=== PATIENT | female | born 1950 | race Caucasian/White ===

== ENCOUNTER → 2019-09-08 | Outpatient (CLI) | payer MEDICARE ==
[~2019-09-08] MED LIST: ARICEPT10 MG PO; NAMENDA XR 28MG PO; OMNICEF 300MG300 MG PO; PRINIVIL5 MG PO
[2019-09-08 14:37] LABS: COLLECTION METHOD CLEAN CATCH
[2019-09-08 14:44] LABS: BASO # 0.1 (0.0-0.2); BASO % 1.1 % (0.0-2.0); EOS # 0.1 (0.0-0.7); EOS % 0.9 % (0-4.0); GRAN # 4.8 (1.4-6.5); GRAN % 60.9 % (42.2-75.2); HEMATOCRIT 46.8 % (37.0-47.0); LYMPH # 2.3 (1.2-3.4); LYMPH % 29.3 % (20.0-51.0); MEAN CELL VOLUME 88 fl (80.0-100.0); MEAN CORPUSCULAR HEMOGLOBIN 28 pg (27.0-31.0); MEAN CORPUSCULAR HGB CONC 32 g/dl (33.0-37.0); MEAN PLATELET VOLUME 10.1 fl (7.4-10.4); MONO # 0.6 (0.1-0.6); MONO % 7.4 % (1.7-9.3); PLATELET COUNT 278 K/mm3 (130-400); RED BLOOD COUNT 5.32 M/mm3 (4.10-5.30); REDCELL DISTRIBUTION WIDTH-CV 13.7 % (11.5-14.5)
[2019-09-08 14:52] LABS: ALBUMIN 4.2 gm/dL (3.5-5.0); BILIRUBIN,TOTAL 0.6 mg/dL (0.0-1.0); CALCIUM 9.4 mg/dL (8.4-10.2); CREATININE, serum 0.77 (0.52-1.25); POTASSIUM 4.2 mmol/L (3.4-5.0); TOTAL PROTEIN 7.6 gm/dL (6.4-8.2)
[2019-09-08 14:58] LABS: MUCOUS Present /lpf; PH 6 (5-8); URINE APPEARANCE Turbid; URINE BACTERIA Rare /hpf; URINE BILIRUBIN Negative (NEGATIVE); URINE BLOOD Negative (NEGATIVE); URINE CALCIUM OXALATE CRYSTAL Present /hpf; URINE COLOR Amber; URINE GLUCOSE Negative (NEGATIVE); URINE KETONE Negative (NEGATIVE); URINE LEUKOCYTE ESTERASE Trace (NEGATIVE); URINE NITRATE Negative (NEGATIVE); URINE PROTEIN(semi-quant) Negative (NEGATIVE); URINE UROBILINOGEN Negative (NEGATIVE)
[2019-09-08 15:22] LABS: THYROID STIMULATING HORMONE 1.67 uIU/mL (0.465-4.680)
== END ==
LOC: ZLAB.STJ 14:23
PROVIDERS: Internal Medicine
DX: N39.0 Urinary tract infection, site not specified (principal); R79.89 Other specified abnormal findings of blood chemistry; R94.6 Abnormal results of thyroid function studies; R68.89 Other general symptoms and signs

== ENCOUNTER 2019-09-13 19:23 | Emergency (ER) | payer MEDICARE ==
[~2019-09-13] VITALS: Ht 172.7 cm; Wt 81.8 kg
[2019-09-13 19:30] VITALS: TEMP 97.6
[2019-09-13] MEDS ORDERED: NAMENDA XR 28MG PO (19:55)
[2019-09-13] MEDS ORDERED: PRINIVIL5 MG PO (19:56)
[2019-09-13] MEDS ORDERED: ARICEPT10 MG PO (19:56)
[2019-09-13 20:22] LABS: BASO # 0.1 (0.0-0.2); BASO % 0.9 % (0.0-2.0); EOS # 0.1 (0.0-0.7); EOS % 0.8 % (0-4.0); GRAN # 5.5 (1.4-6.5); GRAN % 58.8 % (42.2-75.2); HEMATOCRIT 41.4 % (37.0-47.0); HEMOGLOBIN 13.7 g/dl (12.5-16.0); LYMPH # 2.8 (1.2-3.4); LYMPH % 30.1 % (20.0-51.0); MEAN CELL VOLUME 86 fl (80.0-100.0); MEAN CORPUSCULAR HEMOGLOBIN 29 pg (27.0-31.0); MEAN CORPUSCULAR HGB CONC 33 g/dl (33.0-37.0); MEAN PLATELET VOLUME 9.6 fl (7.4-10.4); MONO # 0.9 (0.1-0.6); MONO % 9.2 % (1.7-9.3); PLATELET COUNT 223 K/mm3 (130-400); RED BLOOD COUNT 4.81 M/mm3 (4.10-5.30); REDCELL DISTRIBUTION WIDTH-CV 13.3 % (11.5-14.5)
[2019-09-13 20:37] LABS: ALANINE AMINOTRANSFERASE 25 U/L (4-34); ALBUMIN 3.9 gm/dL (3.5-5.0); ALKALINE PHOSPHATASE 109 U/L (50-136); ANION GAP 7 mmol/L (7-16); AST,SGOT 29 U/L (15-37); BILIRUBIN,TOTAL 0.3 mg/dL (0.0-1.0); BLOOD UREA NITROGEN 12 mg/dL (7-17); C-REACTIVE PROTEIN 0.6 mg/dL (0.0-0.9); CALCIUM 9.1 mg/dL (8.4-10.2); CARBON DIOXIDE 24 mmol/L (22-30); CHLORIDE 105 mmol/L (98-107); CREATININE, serum 0.71 (0.52-1.25); GLUCOSE 94 mg/dL (74-106); POTASSIUM 3.9 mmol/L (3.4-5.0); SODIUM 136 mmol/L (137-145); TOTAL PROTEIN 6.8 gm/dL (6.4-8.2)
[2019-09-13 20:38] LABS: ACETAMINOPHEN < 10 ug/mL (10-30); ALCOHOL(ethanol),MEDICAL < 10 mg/dL; SALICYLATE < 1.0 mg/dL
[2019-09-13 21:16] LABS: COLLECTION METHOD CATHETER
[2019-09-13 21:30] LABS: MUCOUS Present /lpf; PH 5 (5-8); SQUAMOUS EPITHELIAL 0-2 /hpf; URINE APPEARANCE Clear; URINE BACTERIA None Seen /hpf; URINE BILIRUBIN Negative (NEGATIVE); URINE BLOOD Negative (NEGATIVE); URINE COLOR Yellow; URINE GLUCOSE Negative (NEGATIVE); URINE KETONE Negative (NEGATIVE); URINE LEUKOCYTE ESTERASE Negative (NEGATIVE); URINE NITRATE Negative (NEGATIVE); URINE PROTEIN(semi-quant) Negative (NEGATIVE); URINE RBC 0-2 /hpf; URINE UROBILINOGEN Negative (NEGATIVE)
[2019-09-13 21:59] LABS: TRICYCLIC ANTIDEPRESS URINE NEGATIVE
[2019-09-13] MEDS ORDERED: OMNICEF 300MG300 MG PO (22:00)
[2019-09-13 22:18] VITALS: BP 144/80; PULSE 55
== END 2019-09-13 22:26 | disposition home or self-care (01) ==
LOC: COL.ER 19:23
PROVIDERS: Emergency Medicine
DX: F03.90 Unspecified dementia, unspecified severity, without behavioral disturbance, psychotic disturbance, mood disturbance, and anxiety (principal); N39.0 Urinary tract infection, site not specified
CPT/HCPCS: J7030

== ENCOUNTER → 2019-10-13 | Outpatient (CLI) | payer MEDICARE ==
[2019-10-13 02:03] LABS: COLLECTION METHOD CLEAN CATCH
[2019-10-13 02:33] LABS: MUCOUS Present /lpf; PH 5 (5-8); URINE APPEARANCE Cloudy; URINE BACTERIA Rare /hpf; URINE BILIRUBIN Negative (NEGATIVE); URINE BLOOD Negative (NEGATIVE); URINE CALCIUM OXALATE CRYSTAL Present /hpf; URINE COLOR Yellow; URINE GLUCOSE Negative (NEGATIVE); URINE KETONE Negative (NEGATIVE); URINE LEUKOCYTE ESTERASE Trace (NEGATIVE); URINE NITRATE Negative (NEGATIVE); URINE PROTEIN(semi-quant) Negative (NEGATIVE); URINE UROBILINOGEN Negative (NEGATIVE)
== END ==
LOC: ZLAB.STJ 02:01
PROVIDERS: Internal Medicine
DX: N39.0 Urinary tract infection, site not specified (principal)

== ENCOUNTER → 2019-12-03 | Outpatient (CLI) | payer MEDICARE ==
[2019-12-03 18:00] LABS: ALBUMIN 3.1 gm/dL (3.5-5.0); BILIRUBIN,TOTAL 0.4 mg/dL (0.0-1.0); CALCIUM 8.5 mg/dL (8.4-10.2); CREATININE, serum 0.63 (0.52-1.25); POTASSIUM 5.1 mmol/L (3.4-5.0); TOTAL PROTEIN 5.5 gm/dL (6.4-8.2)
== END ==
LOC: ZLAB.STJ 16:49
PROVIDERS: Internal Medicine
DX: E55.9 Vitamin D deficiency, unspecified (principal); I10 Essential (primary) hypertension

== ENCOUNTER 2020-03-22 14:52 | Inpatient (IN) | payer MEDICARE ==
[~2020-03-22] VITALS: Ht 172.7 cm; Wt 85.3 kg
--- NOTE | 2020-03-22 18:47 | NUR ---
Patient arrived to the floor and is now comfortable in the room. She is not oriented but she is alert. She was able to tell me her name and her birthday. She does state that she is in pain, rated 7/10. I attempted to give pt pain medication before shift change but no orders were in the system. telecommunication tower technician nurse is aware and I was told per house that Marce SOTERO is on shift and will be putting in orders shortly. I informed the nightshift nurse of this as well.
[2020-03-23 00:14] VITALS: BP 113/70; PULSE 61; TEMP 99
[2020-03-23 00:36] LABS: BASO % 0.3 % (0.0-2.0); EOS % 0.1 % (0-4.0); GRAN # 5.7 (1.4-6.5); GRAN % 75.4 % (42.2-75.2); HEMATOCRIT 39.6 % (37.0-47.0); HEMOGLOBIN 13.3 g/dl (12.5-16.0); LYMPH # 1.1 (1.2-3.4); LYMPH % 14.6 % (20.0-51.0); MEAN CELL VOLUME 84 fl (80.0-100.0); MEAN CORPUSCULAR HEMOGLOBIN 28 pg (27.0-31.0); MEAN CORPUSCULAR HGB CONC 34 g/dl (33.0-37.0); MEAN PLATELET VOLUME 9.9 fl (7.4-10.4); MONO # 0.7 (0.1-0.6); MONO % 9.1 % (1.7-9.3); PLATELET COUNT 161 K/mm3 (130-400); RED BLOOD COUNT 4.71 M/mm3 (4.10-5.30); REDCELL DISTRIBUTION WIDTH-CV 13.5 % (11.5-14.5)
[2020-03-23 00:43] LABS: ALBUMIN 3.5 gm/dL (3.5-5.0); BILIRUBIN,TOTAL 0.6 mg/dL (0.0-1.0); CALCIUM 8.5 mg/dL (8.4-10.2); CREATININE, serum 0.59 (0.52-1.25); POTASSIUM 4.3 mmol/L (3.4-5.0); TOTAL PROTEIN 6.3 gm/dL (6.4-8.2)
--- NOTE | 2020-03-23 03:41 | NUR ---
Patient laying in bed upon enter the room. Patient alert and oriented to person only. Patient is slow to answer questions. Assessment completed and charted. Unalbe to reconcile RX due to patient not able to provide her medication details. Called [facility] twice and asked them fax patient's MAR to us. Havn't received any fax from [facility]. IV started to right wrist area by scalehouse attendant. IV fluid is infusing well. No s/s complications noted. PRN Tylenol and Morphine given for her pain. Urine sample collected at 03:30 am and sent to the lab. Changed incontinent brief and rosa-care provided. Rosa-area are slightly reddened. Applied PureWick external catheter to rosa-area. Call light within reach.
[2020-03-23 04:03] VITALS: BP 118/70; PULSE 64; TEMP 97.9
--- NOTE | 2020-03-23 05:22 | NUR ---
Called Dr. Neva Granda at [phone] for cousult today.
[2020-03-23] MEDS ORDERED: RISPERDAL 0.20.25 MG PO (06:07)
[2020-03-23] MEDS ORDERED: ZOLOFT 50MG50 MG PO (06:08)
[2020-03-23] MEDS ORDERED: SYSTANE 0.3-0.1 EACH OP (06:11)
[2020-03-23] MEDS ORDERED: MASON NATURAL2000 IU PO (06:13)
[2020-03-23] MEDS ORDERED: CLARITIN 1010 MG/TAB PO (06:14)
[2020-03-23 06:54] LABS: COLLECTION METHOD CATHETER
[2020-03-23 07:13] LABS: MUCOUS Present /lpf; PH 5 (5-8); URINE APPEARANCE Hazy; URINE BACTERIA Many /hpf; URINE BILIRUBIN Negative (NEGATIVE); URINE BLOOD Negative (NEGATIVE); URINE COLOR Amber; URINE GLUCOSE Negative (NEGATIVE); URINE KETONE Negative (NEGATIVE); URINE LEUKOCYTE ESTERASE Negative (NEGATIVE); URINE NITRATE Negative (NEGATIVE); URINE PROTEIN(semi-quant) 1+ (NEGATIVE); URINE RBC 0-2 /hpf; URINE UROBILINOGEN >=4.0 mg/dL (NEGATIVE)
--- NOTE | 2020-03-23 08:18 | NUR ---
PT ON ROOM AIR UPON ENTRY. CHECKED OXYGEN SATURATION AND PT SATTING 87%. WHEN I GOT THE OXYGEN TUBING PT DOWN TO 81%. PLACED 2L NC AND PT SATTING 93%. PT DENIES PAIN IN R HIP. PT NOT GRIMACING. PT ALERT BUT NOT ORIENTED, SPEECH UNINTELLIGABLE. CALL LIGHT AT BEDSIDE, OXYGEN IN NOSE, PUREWICC IN PLACE, FLUIDS RUNNING, MEDICATIONS GIVEN, ORTHO SAID PT WOULD NOT HAVE SURGERY UNTIL TOMORROW, SCD'S IN PLACE, BED ALARM SET, NO OTHER NEEDS.
[2020-03-23 08:30] VITALS: BP 102/86; PULSE 59; TEMP 98.6
--- NOTE | 2020-03-23 09:58 | NUR ---
UPDATED PT DAUGHTER/DPOA NICK ROMERO STATED PT HAD ATTEMPTED SUICIDE ATTEMPT August OF ATTEMPTING TO HANG HERSELF WITH A CALL LIGHT. INFORMED POTHURU OF IMP OF RISPERDAL MEDICATION.
--- NOTE | 2020-03-23 12:23 | NUR ---
PT REPORTING SOME DISCOMFORT IN HIP BUT APPEARS CONFUSED IN CONVERSATION. PT NOT ORIENTED BUT ALERT. MOST SPEECH UNINTELLIGABLE, POINTING TO CORNER IN ROOM AND TALKING ABOUT SEEING SOMETHING. DAUGHTER NICK MENTIONED PT HALLUCINATES. PT TOOK PILLS WITH WATER WITHOUT CHOKING. PT DID SEEM CONFUSED ABOUT USING A STRAW, DRANK WITH LID OFF OF WATER BETTER.
[2020-03-23 12:36] VITALS: BP 103/88; PULSE 73; TEMP 98.2
--- NOTE | 2020-03-23 14:29 | NUR ---
The patient is in Covid-19 precautions. Education General Manager contacted the patient's daughter/DPVIOLET-JULIAN, Lynn to complete intake. The patient lives in [place] at [facility] in [facility]. Since the patient is currently hospitalized with a right hip fracture, the patient is likely going to need post acute rehab and the plan is to return to [facility] for those services. The patient does need assistance with ADLs and prior to this she was ambulating without any assistive devices. The patient's PCP is Dr. Tellez and patient receives medications from [facility]. The patient has advanced directives in the EMR. TEMITOPE faxed updates to [place] at [facility].
[2020-03-23 16:20] VITALS: BP 105/88; PULSE 78; TEMP 98
--- NOTE | 2020-03-23 17:26 | NUR ---
ORTHO SURGEON ORDERING A COLLINS TO BE PLACED FOR PT, SHE WANTS A REPEAT UA, PT SPEECH IS UNINTELLIGABLE AND INNAPROPRIATE FOR CONVERSATION, PT IS ALERT BUT NOT ORIENTED, PT HAVING VERY LOW INPUT AND OUTPUT, REFUSING TO EAT, ONLY DRINKING SMALL SIPS WITH PROMPTING. PT TOOK PILLS WITH WATER BUT THAT TASK TOOK PROMPTING FOR EACH STEP. PT DAUGHTER/DPOA UPDATED. NO OTHER NEEDS AT THIS TIME.
[2020-03-23 18:06] LABS: COLLECTION METHOD CATHETER
[2020-03-23 18:20] LABS: MUCOUS Present /lpf; PH 6 (5-8); URINE APPEARANCE Hazy; URINE BACTERIA Rare /hpf; URINE BILIRUBIN Negative (NEGATIVE); URINE BLOOD Negative (NEGATIVE); URINE COLOR Yellow; URINE GLUCOSE Negative (NEGATIVE); URINE KETONE 1+ (NEGATIVE); URINE LEUKOCYTE ESTERASE Trace (NEGATIVE); URINE NITRATE Negative (NEGATIVE); URINE PROTEIN(semi-quant) 1+ (NEGATIVE); URINE UROBILINOGEN >=4.0 mg/dL (NEGATIVE)
--- NOTE | 2020-03-23 18:31 | NUR ---
kiran placed in pt, called DPOA/daughter Lynn for consent on procedure tomorrow, Marlene ACEVES verified consent.
--- NOTE | 2020-03-23 18:44 | NUR ---
Lynn reported her covid+ test came back 03/21/20 from the halfway.
[2020-03-23 20:18] VITALS: BP 110/70; PULSE 70; TEMP 98.2
[2020-03-24] VITALS (18 sets, daily range): BP systolic 102–138; BP diastolic 48–97; PULSE 53–81; TEMP 94.3–99.4
--- NOTE | 2020-03-24 02:50 | NUR ---
Patient laying in bed resting upon enter the room. Patient opens eyes upon calling her name. Patient appears comfortable. FLACC 0 out of 10 while at rest. Patient alert but not oriented. Slow to answer questions. Scheduled meds given per MAY. Anaya catheter in place and draining dark tea color urine. Patient is scheduled for surgery in AM. NPO maintained from midnight. Call light within reach. Patient denies any needs at this time.
--- NOTE | 2020-03-24 06:40 | NUR ---
Patient rested well throughout the night. No c/o pain or discomfort while at rest. No acute distress noted.
[2020-03-24 07:12] LABS: BASO % 0.3 % (0.0-2.0); EOS % 0.1 % (0-4.0); GRAN # 6.2 (1.4-6.5); GRAN % 78.1 % (42.2-75.2); HEMATOCRIT 40.9 % (37.0-47.0); HEMOGLOBIN 13.5 g/dl (12.5-16.0); LYMPH # 0.9 (1.2-3.4); LYMPH % 11.9 % (20.0-51.0); MEAN CELL VOLUME 85 fl (80.0-100.0); MEAN CORPUSCULAR HEMOGLOBIN 28 pg (27.0-31.0); MEAN CORPUSCULAR HGB CONC 33 g/dl (33.0-37.0); MONO # 0.7 (0.1-0.6); MONO % 9.1 % (1.7-9.3); PLATELET COUNT 162 K/mm3 (130-400); RED BLOOD COUNT 4.81 M/mm3 (4.10-5.30); REDCELL DISTRIBUTION WIDTH-CV 13.4 % (11.5-14.5)
[2020-03-24 07:21] LABS: CALCIUM 8.7 mg/dL (8.4-10.2); CREATININE, serum 0.54 (0.52-1.25); POTASSIUM 4.1 mmol/L (3.4-5.0)
--- NOTE | 2020-03-24 09:44 | NUR ---
PT ALERT, PT ANSWERING QUESTIONS WITH ONE WORD ANSWERS TODAY, PT NOT ORIENTED, PT DENIES ANY PAIN IN HIP AND DOES NOT SHOW SIGNS OF DISCOMFORT, PT COLLINS DRAINING OLIVIA URINE, PT SATTING 88% ON ROOM AIR SO PLACED ON 2L NC. PT TOOK PILLS WITH SIP OF WATER. VITALS REVIEWED, NPO STATUS FOR PROCEDURE, CONSENT SIGNED ON CHART. NO OTHER NEEDS AT THIS TIME.
--- NOTE | 2020-03-24 12:21 | NUR ---
SURGERY ARRIVED EARLY FOR PT. PT OXYGEN FOUND ON FLOOR, PT TAKING IT OFF. PT O2 SATS ON RA FLUCTUATING BETWEEN 88-91%. PT TAKEN DOWN FOR SURGERY.
--- NOTE | 2020-03-24 14:32 | NUR ---
UPDATED NICK, DAUGHTER/DPOA THAT PT WAS IN SURGERY.
--- NOTE | 2020-03-24 15:04 | NUR ---
Chief Data Officer faxed updates to [place] at [facility].
--- NOTE | 2020-03-24 16:38 | NUR ---
PT ARRIVED TO FLOOR, SITE ASSESSED W/ PERIOP NURSE. PT ALERT, NOT ORIENTED, PT KEEPING OXYGEN ON AT THIS TIME, DR. WHITLEY SAID TO HAVE FLUIDS RUNNING UNTIL PT EATING AND DRINKING. PT NOT GRIMACING OR SHOWING SIGNS OF PAIN, ABDUCTOR PILLOW IN PLACE. NO OTHER NEEDS.
--- NOTE | 2020-03-24 17:12 | NUR ---
pt returned from surgery, alert in room, opens eyes to noise, pt keeping in oxygen at this time, pt not grimacing or showing other signs of pain, pt on fluids until oral intake inc per dr. pruett orders. pt weaned down to 2l at this time.
--- NOTE | 2020-03-24 17:54 | NUR ---
CMS INTACT, TEMPERATURE IN L AXILLARY 96.0, TEMP IN R AXILLARY 94.3. ATTEMPTING TO GET RECTAL THERMOMETER. WARM BLANKETS PLACED ON PT, PT SHIVERING. CMS CHECKED AND PEDAL PULSES PALPATED BILATERALLY 2+. DR. BENZ NOTIFIED AND STATED TO RECHECK TEMP IN ANOTHER HOUR AND IF STILL LOW TO CALL AGAIN AND THEY WILL DO A WORKUP.
--- NOTE | 2020-03-24 18:24 | NUR ---
RECTAL TEMP 95.0. ADAN BEY NOTIFIED, ADAN ORDERED BEARHUGGER. BEARHUGGER PLACED ON PT.
--- NOTE | 2020-03-24 19:04 | NUR ---
TEMP 98.0 AXILLARY, BEARHUGGER TURNED DOWN TO MEDIUM LEVEL, IN HOUSE COUNSEL NURSE NOTIFIED.
[2020-03-24 19:54] LABS: BASO % 0.1 % (0.0-2.0); GRAN # 7.7 (1.4-6.5); HEMATOCRIT 39.4 % (37.0-47.0); HEMOGLOBIN 13.1 g/dl (12.5-16.0); LYMPH # 0.6 (1.2-3.4); LYMPH % 6.7 % (20.0-51.0); MEAN CELL VOLUME 86 fl (80.0-100.0); MEAN CORPUSCULAR HEMOGLOBIN 29 pg (27.0-31.0); MEAN CORPUSCULAR HGB CONC 33 g/dl (33.0-37.0); MONO # 0.5 (0.1-0.6); MONO % 5.7 % (1.7-9.3); PLATELET COUNT 140 K/mm3 (130-400); REDCELL DISTRIBUTION WIDTH-CV 13.3 % (11.5-14.5)
[2020-03-24 20:00] LABS: ALBUMIN 3.2 gm/dL (3.5-5.0); BILIRUBIN,TOTAL 0.8 mg/dL (0.0-1.0); CALCIUM 8.4 mg/dL (8.4-10.2); CREATININE, serum 0.52 (0.52-1.25)
--- NOTE | 2020-03-24 20:10 | NUR ---
Received report from Maria. Seen patient asleep in bed. Woke up patient for her medicines. She was able to take them well. She denies pain. Right hip dressing is clean, dry and intact. She is drowsy and confused. SCD on both legs. She is on O2 at 1 1/2LPM. With kiran catheter draining clear, yellow urine. With abduction pillow and bare hugger. Patient's temp is much better now at 98.7F. With IV on right wrist infusing D5LR at 125ml/hr. Replaced ice pack on her right hip. Bed alarm on. Call light within reach.
[2020-03-24 20:45] LABS: COLLECTION METHOD CATHETER
[2020-03-24 21:17] LABS: MUCOUS Present /lpf; PH 5 (5-8); SQUAMOUS EPITHELIAL None Seen /hpf; URINE APPEARANCE Clear; URINE BACTERIA Rare /hpf; URINE BILIRUBIN Negative (NEGATIVE); URINE BLOOD Negative (NEGATIVE); URINE COLOR Yellow; URINE GLUCOSE 3+ (NEGATIVE); URINE KETONE Trace (NEGATIVE); URINE LEUKOCYTE ESTERASE Negative (NEGATIVE); URINE NITRATE Negative (NEGATIVE); URINE PROTEIN(semi-quant) 1+ (NEGATIVE); URINE RBC 0-2 /hpf; URINE UROBILINOGEN >=4.0 mg/dL (NEGATIVE)
[2020-03-25] VITALS (7 sets, daily range): BP systolic 124–151; BP diastolic 59–89; PULSE 66–79; TEMP 98.2–100.1
--- NOTE | 2020-03-25 00:20 | NUR ---
Rounds to patient. She removed her blankets, bairhugger and nasal cannula. Checked patient's temp 99F. Did not put back her chaz hugger anymore. She denies pain. Checked on her orientation, she is still confused and not answering questions well.
--- NOTE | 2020-03-25 02:02 | NUR ---
Patient removed her nasal cannula and blankets again. SPO2 at 90%. Temp at 98.8F. Placed her nasal cannula and re-oriented patient. Placed blankets.
--- NOTE | 2020-03-25 06:26 | NUR ---
Patient denies pain on her right hip. Dressing still clean, dry and intact. Ice pack replaced. Still on O2 at 2lpm via NC.
[2020-03-25 08:06] LABS: BASO % 0.1 % (0.0-2.0); GRAN % 80.1 % (42.2-75.2); HEMOGLOBIN 12.1 g/dl (12.5-16.0); LYMPH # 0.9 (1.2-3.4); LYMPH % 8.9 % (20.0-51.0); MEAN CELL VOLUME 85 fl (80.0-100.0); MEAN CORPUSCULAR HEMOGLOBIN 29 pg (27.0-31.0); MEAN CORPUSCULAR HGB CONC 34 g/dl (33.0-37.0); MEAN PLATELET VOLUME 10.1 fl (7.4-10.4); MONO % 10.2 % (1.7-9.3); PLATELET COUNT 167 K/mm3 (130-400); RED BLOOD COUNT 4.24 M/mm3 (4.10-5.30); REDCELL DISTRIBUTION WIDTH-CV 13.2 % (11.5-14.5)
[2020-03-25 08:17] LABS: HEMATOCRIT 35.9 % (37.0-47.0)
[2020-03-25 08:22] LABS: CALCIUM 8.4 mg/dL (8.4-10.2); CREATININE, serum 0.53 (0.52-1.25); POTASSIUM 3.8 mmol/L (3.4-5.0)
--- NOTE | 2020-03-25 08:45 | NUR ---
Shift assessment complete. Pt lying in bed, ice pack on right hip with abduction pillow between legs. Aquacell to right hip, CDI. Denies pain. NC at 2L, pt removed NC, placed back on at this time. Lungs CTA, heart RRR, alert, oriented to self only. Able to swallow pills one at a time with continued reminders to swallow. Will continue to monitor.
--- NOTE | 2020-03-25 18:25 | NUR ---
Pt rested in bed with eyes closed for most of shift. No complaints. Denies pain when asked and appears comfortable except with large movements. Remains on RA with sats stable. Daughter Lynn updated via phone call today.
--- NOTE | 2020-03-25 19:40 | NUR ---
Received report from Jacqui. Seen patient awake in bed. She is alert but not oriented. Maintained pillow in between her legs. Dressing on right hip is clean, dry and intact. SCD on both legs. She denies pain. Patient keeps on removing her nasal cannula, placed her O2 at 2lpm. Anaya catheter draining clear, yellow urine.
[2020-03-26 05:00] VITALS: BP 129/61; PULSE 74; TEMP 98.6
--- NOTE | 2020-03-26 06:25 | NUR ---
Patient has been asleep most of the night. She had episodes wherein she would remove her nasal cannula and pillow in her legs. Reoriented patient and secured pillow in her legs. No episodes of bowel movement during this shift.
[2020-03-26 08:26] VITALS: BP 129/71; PULSE 82; TEMP 97.1; TEMP 98.1; TEMP 987.1
[2020-03-26 08:46] LABS: CALCIUM 8.2 mg/dL (8.4-10.2); CREATININE, serum 0.53 (0.52-1.25); POTASSIUM 3.9 mmol/L (3.4-5.0)
[2020-03-26 08:47] LABS: BASO % 0.2 % (0.0-2.0); GRAN # 6.3 (1.4-6.5); GRAN % 75.3 % (42.2-75.2); HEMOGLOBIN 11.8 g/dl (12.5-16.0); LYMPH % 12.3 % (20.0-51.0); MEAN CELL VOLUME 83 fl (80.0-100.0); MEAN CORPUSCULAR HEMOGLOBIN 28 pg (27.0-31.0); MEAN CORPUSCULAR HGB CONC 34 g/dl (33.0-37.0); MEAN PLATELET VOLUME 10.2 fl (7.4-10.4); MONO % 11.3 % (1.7-9.3); PLATELET COUNT 177 K/mm3 (130-400); RED BLOOD COUNT 4.22 M/mm3 (4.10-5.30); REDCELL DISTRIBUTION WIDTH-CV 13.3 % (11.5-14.5)
[2020-03-26 08:53] LABS: HEMATOCRIT 34.8 % (37.0-47.0)
--- NOTE | 2020-03-26 08:59 | NUR ---
PATIENT ASSESSMENT COMPLETED. SHE IS ABLE TO TAKE MORNING MEDICATIONS AND DRINK WITH LOTS OF DIRECTIONS. I HAVE FED HER SOME BREAKFAST ALSO. SHE DOESN'T ANSWER ANYTHING VERBALLY. DOES GRIMMACE ALITTLE WITH ADJUSTING OF THE HEAD OF BED TO EAT AND TAKE MEDICATIONS. WILL CONTINUE TO MONITOR
[2020-03-26 12:48] VITALS: BP 125/63; PULSE 72; TEMP 98
--- NOTE | 2020-03-26 13:09 | NUR ---
PATIENT IS NOT ABLE TO COMPREHEND HOW TO USE THE IS OR DO THE COUGH DEEP BREATH. THIS WAS DCD WITH DR. TUYET CLEMENTS
[2020-03-26 16:20] VITALS: BP 128/68; PULSE 80; TEMP 98.4
--- NOTE | 2020-03-26 20:50 | NUR ---
PT ALERT, NOT ORIENTED, SPEECH UNINTELIGABLE, TOOK PILLS WITH WATER, HAD TO PLACE OXYGEN IN PT'S NOSE SHE WAS TRYING TO TAKE IT OUT, PT REORIENTED AND EDUCATED ON IT'S PURPOSE, PT SEEMED UNINTERESTED. PT GIVEN MEDICATION, VITALS TAKEN, ASSESSMENT PERFORMED, COLLINS DRAINING YELLOW URINE, PT RESTLESS IN BED SO PAIN MEDICATION GIVEN, CALL LIGHT WITHIN REACH, NO OTHER NEEDS AT THIS TIME.
[2020-03-26 21:02] VITALS: BP 148/66; PULSE 57; TEMP 98
[2020-03-27 00:15] VITALS: BP 134/68; PULSE 55; TEMP 98.2
--- NOTE | 2020-03-27 00:20 | NUR ---
PT SLEEPING COMFORTABLY IN ROOM, OXYGEN IN NOSE. NO OTHER NEEDS AT THIS TIME
[2020-03-27 04:41] VITALS: BP 143/70; PULSE 68; TEMP 97.8
--- NOTE | 2020-03-27 05:21 | NUR ---
PT STARTED OFF SHIFT APPEARING UNCOMFORTABLE IN THE BED BY MOVING AROUND AND GRIMACING AND MOANING. AFTER GIVEN KENDRA PT SLEEPING WELL. UNEVENTFUL SHIFT.
[2020-03-27 08:01] VITALS: BP 145/79; PULSE 69; TEMP 98.1
[2020-03-27 08:10] LABS: BASO % 0.2 % (0.0-2.0); GRAN # 5.8 (1.4-6.5); GRAN % 70.1 % (42.2-75.2); HEMATOCRIT 34.5 % (37.0-47.0); HEMOGLOBIN 11.6 g/dl (12.5-16.0); LYMPH # 1.4 (1.2-3.4); LYMPH % 16.7 % (20.0-51.0); MEAN CELL VOLUME 85 fl (80.0-100.0); MEAN CORPUSCULAR HEMOGLOBIN 29 pg (27.0-31.0); MEAN CORPUSCULAR HGB CONC 34 g/dl (33.0-37.0); MONO % 11.6 % (1.7-9.3); PLATELET COUNT 192 K/mm3 (130-400); RED BLOOD COUNT 4.07 M/mm3 (4.10-5.30); REDCELL DISTRIBUTION WIDTH-CV 13.5 % (11.5-14.5)
[2020-03-27 08:17] LABS: CALCIUM 8.5 mg/dL (8.4-10.2); CREATININE, serum 0.59 (0.52-1.25); POTASSIUM 4.3 mmol/L (3.4-5.0)
--- NOTE | 2020-03-27 09:46 | NUR ---
Pt napping upon entry, easily awakened. No C/O pain at this time. on 1 lpm O2. Shift assessments complete, left Pt call light in reach, bed in lowest position.
[2020-03-27 11:37] VITALS: BP 135/76; PULSE 57; TEMP 98.2
--- NOTE | 2020-03-27 14:10 | NUR ---
General Internal Medicine Physician faxed clinical updates to [place] [facility] [place].
--- NOTE | 2020-03-27 14:41 | NUR ---
Rounded on Pt, no needs at this time.
[2020-03-27 17:17] VITALS: BP 124/75; PULSE 56; TEMP 98.1
[2020-03-27 20:19] VITALS: BP 135/61; PULSE 54; TEMP 98.4
--- NOTE | 2020-03-27 21:00 | NUR ---
Seen patient awake in bed. She removed her nasal cannula. Placed it back and re-oriented her that she need to have the oxygen. Patient needs to be reminded to swallow her pills and drink the water as she was just letting the medicine melt in her mouth. With SCD on bilateral lower extremities. Anaya catheter draining clear, yellow urine. Dressing in right hip is clean, dry and intact. With INT on right wrist. Bed alarm on. Patient denies pain. She is confused.
[2020-03-28 00:27] VITALS: BP 120/70; PULSE 56; TEMP 98.1
--- NOTE | 2020-03-28 02:11 | NUR ---
Rounds on patient. She is asleep. Not in distress. No facial grimace noted. Not in pain.
[2020-03-28 04:20] VITALS: BP 121/68; PULSE 51; TEMP 97.4
--- NOTE | 2020-03-28 06:14 | NUR ---
Patient had been asleep most of the night. Changed her diaper this morning. She denies pain. Bed alarm on.
[2020-03-28 08:54] VITALS: BP 117/50; PULSE 54; TEMP 98.1
--- NOTE | 2020-03-28 09:00 | NUR ---
Pt awake and alert upon entry this morning, no C/O pain at this time. Shift assessments complete, left Pt call light in reach, bed in lowest position.
--- NOTE | 2020-03-28 09:06 | NUR ---
The patient's daughter, Lynn contacted this Field Irrigation Worker regarding some concerns about the patient and her care. She inquired about some medications the patient was on and if she had anything for pain. TEMITOPE notified Hospitalist.
[2020-03-28 09:47] LABS: BASO % 0.1 % (0.0-2.0); EOS % 0.1 % (0-4.0); GRAN # 5.7 (1.4-6.5); HEMOGLOBIN 11.9 g/dl (12.5-16.0); LYMPH # 1.8 (1.2-3.4); LYMPH % 21.7 % (20.0-51.0); MEAN CELL VOLUME 85 fl (80.0-100.0); MEAN CORPUSCULAR HEMOGLOBIN 28 pg (27.0-31.0); MEAN CORPUSCULAR HGB CONC 33 g/dl (33.0-37.0); MEAN PLATELET VOLUME 9.8 fl (7.4-10.4); MONO # 0.7 (0.1-0.6); MONO % 7.8 % (1.7-9.3); PLATELET COUNT 234 K/mm3 (130-400); RED BLOOD COUNT 4.22 M/mm3 (4.10-5.30); REDCELL DISTRIBUTION WIDTH-CV 13.4 % (11.5-14.5)
[2020-03-28 09:53] LABS: HEMATOCRIT 35.9 % (37.0-47.0)
[2020-03-28 10:04] LABS: CALCIUM 8.5 mg/dL (8.4-10.2); CREATININE, serum 0.58 (0.52-1.25); POTASSIUM 3.5 mmol/L (3.4-5.0)
[2020-03-28 12:00] VITALS: BP 90/71; PULSE 63; TEMP 98.1
--- NOTE | 2020-03-28 12:55 | NUR ---
Director Orange recieved call from ANDRÉS Carmona who shared frustrations with lack of communcation from providers, inability to facetime/talk on phone with mom. She is requesting [facility] discahrge to [facility] where she came from. RM had long discussion with Lynn regarding current POC as documented in chart by ID and Hospitalist. Lynn is upset with the minimal PT/OT therapy Ms Chester is getting; Lynn shares that her mom "wondered all over the [facility] area where she resides" sharing her mom was rarely "still"; this inactivity is "increasing her overall weakness and prolonging her recovery". Lynn Hassan - daughter DPOR of Ms. Chester would like a call from the Hospitalist daily with progress reports and POC. She is also requestion PT/OT treat daily and asks that her Mom be up in chair etc. Lynn also shares concerns asking if Mom is getting bathed and oral hygiene etc. She would like to Skype/Zoom occasionally and/or at least be able to have someone assist in handing Mom the phone when Lynn calls in; Lynn shares that in [facility] she talked daily to her Mom. She feels as if we are leaving her unattended and with minimal care because she has dementia and can not advocate for herself. Messages sent to Dr. High rerquesting he call Lynn BOWEN at [phone]. Juana Gonzalez MSN, GRAIN ELEVATOR MOTOR STARTER-, Director Orange
[2020-03-28 15:55] VITALS: BP 100/77; PULSE 63; TEMP 98.1
--- NOTE | 2020-03-28 19:05 | NUR ---
Received report from Pasquale. Seen patient asleep in bed. Bed alarm on. Will check on patient again.
[2020-03-28 19:38] VITALS: BP 129/68; PULSE 58; TEMP 97
--- NOTE | 2020-03-28 20:09 | NUR ---
Night meds given. She was able to take them with no problems. Encouraged patient to drink more fluids. Tried giving Ensure to patient, she drink a little bit and she refused after. Placed pillow in between her legs. SCD on bilateral lower extremities. She is still confused. Dressing on right hip is clean, dry and intact.
--- NOTE | 2020-03-28 21:46 | NUR ---
Provided oral care to patient. Cleaned patient with bath wipes and shower cap. Changed her gown and provided catheter care. Changed patient's bed sheets and blankets.
[2020-03-29 08:00] VITALS: BP 127/79; PULSE 53; TEMP 97.5
[2020-03-29 11:56] VITALS: BP 92/51; PULSE 57; TEMP 97.4
[2020-03-29 12:35] LABS: HEMATOCRIT 36.3 % (37.0-47.0); HEMOGLOBIN 12.4 g/dl (12.5-16.0); MEAN CELL VOLUME 83 fl (80.0-100.0); MEAN CORPUSCULAR HEMOGLOBIN 28 pg (27.0-31.0); MEAN CORPUSCULAR HGB CONC 34 g/dl (33.0-37.0); MEAN PLATELET VOLUME 9.5 fl (7.4-10.4); PLATELET COUNT 266 K/mm3 (130-400); RED BLOOD COUNT 4.37 M/mm3 (4.10-5.30); REDCELL DISTRIBUTION WIDTH-CV 13.1 % (11.5-14.5)
[2020-03-29 12:43] VITALS: BP 125/83
[2020-03-29 13:24] LABS: BAND 2 % (0-10); LYMPHOCYTE 27 % (20.0-51.0); METAMYELOCYTE 1 % (0-0); NEUTROPHILS 65 % (42.0-75.2); PLATELET ESTIMATE NORMAL (NORMAL)
[2020-03-29 13:31] LABS: CALCIUM 8.2 mg/dL (8.4-10.2); CREATININE, serum 0.51 (0.52-1.25); POTASSIUM 3.4 mmol/L (3.4-5.0)
--- NOTE | 2020-03-29 14:38 | NUR ---
Desk Lieutenant faxed updates to [place] at [facility].
[2020-03-29 16:45] VITALS: BP 121/69; PULSE 63; TEMP 98.2
--- NOTE | 2020-03-29 17:42 | NUR ---
Patient has had an uneventful day. PT gother up to chair and she sat up in the recliner for most of the day. She has denied pain all day and did relatively well transferring back to bed with alot of direction, beared a little bit of weight. Anaya leaked a little while sitting up in chair but drains well. She well with assist and reminders. no other needs. Fall precautions in place. Call light is inr each.
[2020-03-29 19:57] VITALS: BP 138/75; PULSE 85; TEMP 98.4
--- NOTE | 2020-03-29 20:00 | NUR ---
Assessment complete. Patient is alert and appears to be intermittenly oriented, but confused for the majority of the time; She does follow commands but needs frequent cueing. No edema is present and patient states she is not in any pain. Right hip surgical site has an aquacell that is CDI; no issues are observed at the site. Patient is breathing RA and shows no signs of SOA. SCD's are applied to both lower extremities. Indwelling catheter is draining yellow urine. Patient is fidgety and attempts to get out of bed occassionally. Will continue to monitor.
[2020-03-30 00:23] VITALS: BP 131/69; PULSE 59; TEMP 98.4
--- NOTE | 2020-03-30 02:35 | NUR ---
At this time, patient has set off her bed alarm. Patient is readjusted in bed and upon close inspection of her skin, her cheeks appear redenned and she has a pink/red patch on her left upper arm/shoulder and her back. Gluten is on her allergy list and she has a general diet. Dr. High is notified and orders a gluten free diet and 12.6 mg Benadryl to be administered. Will continue to monitor.
[2020-03-30 04:39] VITALS: BP 131/76; PULSE 62; TEMP 98.3
[2020-03-30 07:31] LABS: HEMOGLOBIN 12.4 g/dl (12.5-16.0); MEAN CELL VOLUME 83 fl (80.0-100.0); MEAN CORPUSCULAR HEMOGLOBIN 28 pg (27.0-31.0); MEAN CORPUSCULAR HGB CONC 34 g/dl (33.0-37.0); MEAN PLATELET VOLUME 9.5 fl (7.4-10.4); PLATELET COUNT 291 K/mm3 (130-400); RED BLOOD COUNT 4.44 M/mm3 (4.10-5.30)
[2020-03-30 07:33] LABS: CALCIUM 8.3 mg/dL (8.4-10.2); CREATININE, serum 0.5 (0.52-1.25); POTASSIUM 3.5 mmol/L (3.4-5.0)
[2020-03-30 07:39] VITALS: BP 143/75; PULSE 60; TEMP 98
[2020-03-30 07:39] LABS: HEMATOCRIT 36.7 % (37.0-47.0)
[2020-03-30 08:55] LABS: BAND 2 % (0-10); NEUTROPHILS 73 % (42.0-75.2); PLATELET ESTIMATE NORMAL (NORMAL)
[2020-03-30 08:57] LABS: LYMPHOCYTE 19 % (20.0-51.0)
[2020-03-30] MEDS ORDERED: ASPI325T6 PO (08:59)
[2020-03-30] MEDS ORDERED: DECADRON6 MG PO (09:00)
[2020-03-30] MEDS ORDERED: PROTONIX 40MG T40 MG PO (09:00)
[2020-03-30] MEDS ORDERED: SENOKOT S 50 MG1 TAB PO (09:02)
[2020-03-30] MEDS ORDERED: NORCO 325 MG-51 TAB PO (09:06)
--- NOTE | 2020-03-30 09:37 | NUR ---
Assessment complete. Patient laying in bed on entry, relatively sleepy this morning. Dressing was changed on her R hip site by Ortho, site was CD&I. Patient was repositioned and sat up for pills and some breakfast. She took pills okay, some remain in mouth but she gets them down with small bites of food eventually. Patient is able to follow some commands, other she ignores or doesnt understand. She occationally uses objects innapropriatly, like trying to eat the call light. No other needs were expressed. Patient denied pain and stated that she was comfortable. No other needs. Fall precautions are in place.
[2020-03-30 11:55] VITALS: BP 131/79; PULSE 62; TEMP 98.1
[2020-03-30 12:40] VITALS: BP 131/79; PULSE 62; TEMP 98.1
--- NOTE | 2020-03-30 12:58 | NUR ---
The patient is to discharge to [facility] today, 03/30. The patient will have skilled care before transitioning back to LTC. Discharge orders faxed. The patient will be transported at 1300. Team in agreeance. SW contacted the patient's daughter, Lynn to provide update. She was in agreeance. TEMITOPE presented the IM form to Lynn. She verbalized understanding and gave SW permission to sign on her behalf. A copy was provided to the patient, original in chart. No other needs.
--- NOTE | 2020-03-30 13:49 | NUR ---
PATIENT LEFT THE [facility] AT THIS TIME VIA WHEEL CHAIR. X2 ASSIST FROM BED TO WHEEL CHAIR. PT WAS TEARFUL STATING SHE DID NOT WANT TO GO BACK TO [facility]. I ASSURED HER THIS WAS A GOOD THING. KARINA WAS D/C'D, PT TOLERATED WELL. NEW BRIEF APPLIED BEFORE LEAVING.
== END 2020-03-30 13:50 | DRG 521 ==
LOC: COL.RAD 14:52 → MEDICAL 18:04 → COL.RAD 20:45 → MEDICAL 20:46
PROVIDERS: Nurse Practitioner Primary Care; Orthopaedic Surgery; Student in an Organized Health Care Education/Training Program; ADMIT Student in an Organized Health Care Education/Training Program
PROC: 0SRR0J9 Replacement of Right Hip Joint, Femoral Surface with Synthetic Substitute, Cemented, Open Approach (ICD-10-PCS; principal; 2020-03-24 13:00)
DX: S72.001A Fracture of unspecified part of neck of right femur, initial encounter for closed fracture (principal); U07.1 COVID-19; F32.9 Major depressive disorder, single episode, unspecified; I10 Essential (primary) hypertension; F03.90 Unspecified dementia, unspecified severity, without behavioral disturbance, psychotic disturbance, mood disturbance, and anxiety; K21.9 Gastro-esophageal reflux disease without esophagitis; Z90.710 Acquired absence of both cervix and uterus
CPT/HCPCS: 99222-AI; 99232-AI; 99233-AI; 99239; A9284; C1713; C1776; C9113; J0690; J0696; J1100; J2250; J2270; J2704; J2795; J3010; J7030; J7050; J7121; J8540

== ENCOUNTER → 2020-04-06 | Outpatient (CLI) | payer MEDICARE ==
[~2020-04-06] MED LIST changes: +ASPI325T6 PO; +CLARITIN 1010 MG/TAB PO; +DECADRON6 MG PO; +MASON NATURAL2000 IU PO; +NORCO 325 MG-51 TAB PO; +PROTONIX 40MG T40 MG PO; +RISPERDAL 0.20.25 MG PO; +SENOKOT S 50 MG1 TAB PO; +SYSTANE 0.3-0.1 EACH OP; +ZOLOFT 50MG50 MG PO
[2020-04-06 17:03] LABS: COLLECTION METHOD CATHETER
[2020-04-06 17:14] LABS: BUDDING YEAST Present /hpf; MUCOUS Present /lpf; PH 6 (5-8); SQUAMOUS EPITHELIAL 0-2 /hpf; URINE APPEARANCE Turbid; URINE BACTERIA Rare /hpf; URINE BILIRUBIN Negative (NEGATIVE); URINE BLOOD Negative (NEGATIVE); URINE COLOR Yellow; URINE GLUCOSE Negative (NEGATIVE); URINE KETONE Negative (NEGATIVE); URINE LEUKOCYTE ESTERASE Trace (NEGATIVE); URINE NITRATE Negative (NEGATIVE); URINE PROTEIN(semi-quant) Negative (NEGATIVE); URINE UROBILINOGEN Negative (NEGATIVE)
== END ==
LOC: ZLAB.STJ 16:23
PROVIDERS: Internal Medicine
DX: N39.0 Urinary tract infection, site not specified (principal)

== ENCOUNTER → 2020-04-10 | Outpatient (CLI) | payer MEDICARE ==
[2020-04-10 18:47] LABS: BASO # 0.1 (0.0-0.2); BASO % 0.9 % (0.0-2.0); EOS # 0.1 (0.0-0.7); EOS % 0.9 % (0-4.0); GRAN # 5.7 (1.4-6.5); GRAN % 71.4 % (42.2-75.2); HEMATOCRIT 39.4 % (37.0-47.0); HEMOGLOBIN 12.7 g/dl (12.5-16.0); LYMPH # 1.4 (1.2-3.4); LYMPH % 17.8 % (20.0-51.0); MEAN CELL VOLUME 87 fl (80.0-100.0); MEAN CORPUSCULAR HEMOGLOBIN 28 pg (27.0-31.0); MEAN CORPUSCULAR HGB CONC 32 g/dl (33.0-37.0); MONO # 0.7 (0.1-0.6); MONO % 8.3 % (1.7-9.3); PLATELET COUNT 255 K/mm3 (130-400); RED BLOOD COUNT 4.55 M/mm3 (4.10-5.30); REDCELL DISTRIBUTION WIDTH-CV 13.6 % (11.5-14.5)
[2020-04-10 18:48] LABS: ALBUMIN 3.1 gm/dL (3.5-5.0); BILIRUBIN,TOTAL 0.4 mg/dL (0.0-1.0); CALCIUM 8.8 mg/dL (8.4-10.2); CREATININE, serum 0.58 (0.52-1.25); TOTAL PROTEIN 6.1 gm/dL (6.4-8.2)
[2020-04-10 19:19] LABS: THYROID STIMULATING HORMONE 1.13 uIU/mL (0.465-4.680)
== END ==
LOC: ZLAB.STJ 14:21
PROVIDERS: Internal Medicine
DX: E55.9 Vitamin D deficiency, unspecified (principal)

== ENCOUNTER → 2020-05-02 | Outpatient (REF) ==
[2020-05-02 15:06] LABS: COLLECTION METHOD CLEAN CATCH
[2020-05-02 15:55] LABS: MUCOUS Present /lpf; PH 7 (5-8); SQUAMOUS EPITHELIAL 0-2 /hpf; URINE APPEARANCE Cloudy; URINE BACTERIA Rare /hpf; URINE BILIRUBIN Negative (NEGATIVE); URINE BLOOD Negative (NEGATIVE); URINE COLOR Yellow; URINE GLUCOSE Negative (NEGATIVE); URINE KETONE Negative (NEGATIVE); URINE LEUKOCYTE ESTERASE Trace (NEGATIVE); URINE NITRATE Positive (NEGATIVE); URINE PROTEIN(semi-quant) Negative (NEGATIVE); URINE UROBILINOGEN Negative (NEGATIVE)
== END ==
LOC: ZLAB.STJ 15:04
PROVIDERS: Internal Medicine
DX: N39.0 Urinary tract infection, site not specified (principal)

== ENCOUNTER → 2020-06-17 | Outpatient (REF) | payer MEDICARE ==
[2020-06-17 10:32] LABS: COLLECTION METHOD CLEAN CATCH
[2020-06-17 11:12] LABS: MUCOUS Present /lpf; PH 5 (5-8); URINE APPEARANCE Turbid; URINE BACTERIA Rare /hpf; URINE BILIRUBIN Negative (NEGATIVE); URINE BLOOD Negative (NEGATIVE); URINE CALCIUM OXALATE CRYSTAL Present /hpf; URINE COLOR Amber; URINE GLUCOSE Negative (NEGATIVE); URINE KETONE Trace (NEGATIVE); URINE LEUKOCYTE ESTERASE 3+ (NEGATIVE); URINE NITRATE Positive (NEGATIVE); URINE PROTEIN(semi-quant) 1+ (NEGATIVE)
== END ==
LOC: ZLAB.STJ 10:23
PROVIDERS: Internal Medicine
DX: N39.0 Urinary tract infection, site not specified (principal)

== ENCOUNTER → 2020-07-26 | Outpatient (CLI) | payer MEDICARE | LOC: ZLAB.STJ 14:47 | DX: R94.6 Abnormal results of thyroid function studies (principal) ==

== ENCOUNTER → 2020-12-22 | Outpatient (CLI) | payer MEDICARE ==
[2020-12-23 03:06] LABS: BASO # 0.1 K/mm3 (0.0-0.2); BASO % 0.8 % (0.0-2.0); EOS % 0.3 % (0-4.0); GRAN # 4.6 K/mm3 (1.4-6.5); GRAN % 61.5 % (42.2-75.2); HEMATOCRIT 44.3 % (37.0-47.0); LYMPH # 2.3 K/mm3 (1.2-3.4); LYMPH % 30.6 % (20.0-51.0); MEAN CELL VOLUME 95 fl (80.0-100.0); MEAN CORPUSCULAR HEMOGLOBIN 30 pg (27.0-31.0); MEAN CORPUSCULAR HGB CONC 32 g/dl (33.0-37.0); MEAN PLATELET VOLUME 10.8 fl (7.4-10.4); MONO # 0.5 K/mm3 (0.1-0.6); MONO % 6.5 % (1.7-9.3); PLATELET COUNT 186 K/mm3 (130-400); RED BLOOD COUNT 4.69 M/mm3 (4.10-5.30); REDCELL DISTRIBUTION WIDTH-CV 15.5 % (11.5-14.5)
[2020-12-23 03:51] LABS: ALBUMIN 3.8 gm/dL (3.4-4.8); BILIRUBIN,TOTAL 0.4 mg/dL (0.2-1.2); CALCIUM 9.3 mg/dL (8.4-10.2); CREATININE, serum 0.79 mg/dL (0.57-1.11); POTASSIUM 4.6 mmol/L (3.5-4.5); TOTAL PROTEIN 6.8 gm/dL (6.2-8.1); VALPROIC ACID (DEPAKENE) 67.1 ug/mL (43.5-90.5)
== END ==
LOC: COL.LAB 12:48
PROVIDERS: Internal Medicine
DX: I10 Essential (primary) hypertension (principal); F32.3 Major depressive disorder, single episode, severe with psychotic features

== ENCOUNTER → 2021-01-08 | Outpatient (CLI) | payer MEDICARE ==
[2021-01-08 18:43] LABS: BASO # 0.1 K/mm3 (0.0-0.2); BASO % 0.7 % (0.0-2.0); EOS # 0.1 K/mm3 (0.0-0.7); EOS % 0.6 % (0-4.0); GRAN # 5.2 K/mm3 (1.4-6.5); GRAN % 62.2 % (42.2-75.2); HEMATOCRIT 39.8 % (37.0-47.0); HEMOGLOBIN 12.7 g/dl (12.5-16.0); LYMPH # 2.6 K/mm3 (1.2-3.4); LYMPH % 30.4 % (20.0-51.0); MEAN CELL VOLUME 95 fl (80.0-100.0); MEAN CORPUSCULAR HEMOGLOBIN 30 pg (27.0-31.0); MEAN CORPUSCULAR HGB CONC 32 g/dl (33.0-37.0); MEAN PLATELET VOLUME 11.2 fl (7.4-10.4); MONO # 0.5 K/mm3 (0.1-0.6); MONO % 5.9 % (1.7-9.3); PLATELET COUNT 205 K/mm3 (130-400); REDCELL DISTRIBUTION WIDTH-CV 14.8 % (11.5-14.5)
[2021-01-08 19:02] LABS: ALBUMIN 3.4 gm/dL (3.4-4.8); BILIRUBIN,TOTAL 0.3 mg/dL (0.2-1.2); CREATININE, serum 0.78 mg/dL (0.57-1.11); POTASSIUM 4.4 mmol/L (3.5-4.5)
== END ==
LOC: ZLAB.STJ 16:44
PROVIDERS: Internal Medicine
DX: Z51.81 Encounter for therapeutic drug level monitoring (principal); R79.9 Abnormal finding of blood chemistry, unspecified; R79.89 Other specified abnormal findings of blood chemistry

== ENCOUNTER → 2021-06-19 | Outpatient (CLI) | payer MEDICARE ==
[2021-06-19 16:31] LABS: BASO # 0.1 K/mm3 (0.0-0.2); EOS % 0.5 % (0.0-4.0); GRAN # 4.6 K/mm3 (1.4-6.5); GRAN % 60.6 % (42.2-75.2); HEMATOCRIT 39.9 % (37.0-47.0); HEMOGLOBIN 13.2 g/dl (12.5-16.0); LYMPH # 2.3 K/mm3 (1.2-3.4); LYMPH % 29.9 % (20.0-51.0); MEAN CELL VOLUME 94 fl (80.0-100.0); MEAN CORPUSCULAR HEMOGLOBIN 31 pg (27-31); MEAN CORPUSCULAR HGB CONC 33 g/dl (33.0-37.0); MONO # 0.6 K/mm3 (0.1-0.6); MONO % 7.7 % (1.7-9.3); PLATELET COUNT 207 K/mm3 (130-400); RED BLOOD COUNT 4.26 M/mm3 (4.10-5.30); REDCELL DISTRIBUTION WIDTH-CV 13.5 % (11.5-14.5)
[2021-06-19 17:22] LABS: ALBUMIN 3.5 gm/dL (3.4-4.8); BILIRUBIN,TOTAL 0.5 mg/dL (0.2-1.2); CALCIUM 8.6 mg/dL (8.4-10.2); CREATININE, serum 0.81 mg/dL (0.57-1.11); POTASSIUM 4.8 mmol/L (3.5-4.5); TOTAL PROTEIN 6.8 gm/dL (6.2-8.1); VALPROIC ACID (DEPAKENE) 58.5 ug/mL (43.5-90.5)
== END ==
LOC: ZLAB.STJ 16:06
PROVIDERS: Internal Medicine
DX: I10 Essential (primary) hypertension (principal)

== ENCOUNTER → 2021-07-09 | Outpatient (CLI) | payer MEDICARE ==
[2021-07-09 16:44] LABS: BILIRUBIN,TOTAL 0.3 mg/dL (0.2-1.2); TOTAL PROTEIN 6.9 gm/dL (6.2-8.1)
[2021-07-09 17:00] LABS: BILIRUBIN,DIRECT 0.1 mg/dL (0.0-0.5)
[2021-07-09 17:01] LABS: VALPROIC ACID (DEPAKENE) 52.3 ug/mL (43.5-90.5)
== END ==
LOC: ZLAB.STJ 15:41
PROVIDERS: Internal Medicine
DX: Z01.89 Encounter for other specified special examinations (principal)